=== PATIENT | female | born 2000 | race Caucasian/White ===

== ENCOUNTER 2024-09-06 12:44 | Outpatient (CLI) | payer OTHER, SELFPAY ==
--- NOTE | ~2024-09-06 | MR_ITS ---
EXAMINATION: MR knee LT wo con DATE: 09/06/2024 13:18 INDICATION: Chronic left knee pain TECHNIQUE: Magnetic resonance imaging (MRI) of the left knee was performed without intravenous contra st. Sequences included coronal PD-weighted FSE, coronal PD-weighted FS FSE, sagittal T2-weighted FSE , sagittal PD-weighted FS FSE and axial PD weighted fat saturated FSE. COMPARISON: None. FINDINGS: Medial compartment: Medial meniscus is normal. Articular cartilage is normal. Lateral compartment: Lateral meniscus is normal. Articular cartilage is normal. Patellofemoral compartment: Articular cartilage is normal. Ligaments and tendons: Anterior and posterior cruciate ligaments are normal. The medial collateral ligament and fibular ciara ateral ligament complex are normal. Patellar tendon is normal. Mild tendinopathy lateral patellar ins ertion of the quadriceps tendon with very small fluid signal intensity tear versus erosion at this lo cation best appreciated on the sagittal images. This measures 5 mm craniocaudally on the sagittal arash ging but is indiscernible on the axial and coronal imaging, potentially small longitudinal split tear . The visualized medial and lateral hamstring tendons as well as the iliotibial band are normal. Fluid: Physiologic amount of fluid in the joint space. No loose osteochondral bodies identified. Osseous/other: Normal marrow signal. No fracture or pathologic marrow replacing process. IMPRESSION: 1. Mild tendinopathy with very small tear versus erosion at the lateral patellar insertion of the mikey driceps tendon. Reviewed, dictated and finalized at location A. IMPRESSION: 1. Mild tendinopathy with very small tear versus erosion at the lateral patella r insertion of the quadriceps tendon.
== END 2024-09-06 12:45 | disposition home or self-care (01) ==
LOC: GOSHIMG 12:46
PROVIDERS: PCP Orthopaedic Surgery; Visit Provider Orthopaedic Surgery
DX: M76.52 Patellar tendinitis, left knee (principal); G89.29 Other chronic pain
CPT/HCPCS: 73721